=== PATIENT | male | born 1975 | race Two or more races ===

== ENCOUNTER 2024-09-23 05:46 | Inpatient (IN) | payer BC, OTHER ==
[~2024-09-23] VITALS: Ht 167.6 cm; Wt 73.2 kg
[2024-09-23] VITALS (8 sets, daily range): BP systolic 104–118; BP diastolic 69–77; PULSE 91–114; RESP 15–18; TEMP 97.5–98.2; O2SAT 94–97
[2024-09-23 06:15] LABS: BASOPHILS % (AUTO) 0.2 % (0-1); EOSINOPHILS % (AUTO) 0 % (0-6); HEMATOCRIT 41.2 % (42.0-52.0); HEMOGLOBIN 13.4 g/dl (14.0-17.9); LYMPHOCYTES # (AUTO) 0.7 X10'3 (1.1-4.8); LYMPHOCYTES % (AUTO) 4.7 % (21-51); MEAN CORPUSCULAR HEMOGLOBIN 25.1 PG (27.0-31.0); MEAN CORPUSCULAR HGB CONC 32.4 g/dL (33.0-36.5); MEAN CORPUSCULAR VOLUME 77.6 FL (78-98); MEAN PLATELET VOLUME 10.2 FL (7.4-10.4); MONOCYTES # (AUTO) 0.3 X10'3 (0-0.9); MONOCYTES % (AUTO) 1.7 % (2-12); NEUTROPHILS # (AUTO) 14.8 X10'3 (1.8-7.7); NEUTROPHILS % (AUTO) 93.4 % (42-75); PLATELET COUNT 255 X10'3 (140-440); RED BLOOD COUNT 5.32 X10'6 (4.70-6.10); RED CELL DISTRIBUTION WIDTH 14.3 % (11.5-14.5); WHITE BLOOD COUNT 15.8 X10'3 (4.5-11.0)
[2024-09-23 06:21] LABS: ALANINE AMINOTRANSFERASE 42 U/L (12-78); ALBUMIN 3.3 G/DL (3.4-5.0); ALBUMIN/GLOBULIN RATIO 0.7 (1.1-1.5); ALKALINE PHOSPHATASE 112 IU/L (46-116); ANION GAP 11 (8-16); ASPARTATE AMINO TRANSFERASE 58 U/L (10-37); BILIRUBIN,TOTAL 0.4 MG/DL (0.1-1.0); BLOOD UREA NITROGEN 18 MG/DL (7-18); BUN/CREATININE RATIO 13.1 (10.0-20.0); CALCIUM 8.9 MG/DL (8.5-10.1); CHLORIDE 102 MMOL/L (99-107); CREATININE 1.37 MG/DL (0.60-1.10); GLUCOSE 306 MG/DL (70-104); POTASSIUM 3.9 MMOL/L (3.5-5.1); SODIUM 136 MMOL/L (135-145); TOTAL CARBON DIOXIDE 22.6 MMOL/L (24-32); TOTAL PROTEIN 7.9 G/DL (6.4-8.2); eCRCL 58 ML/MIN; eGFR 55 ML/MIN
[2024-09-23 06:29] LABS: PRO BRAIN NATRIURETIC PEPTIDE 3043 PG/ML (0-125)
[2024-09-23] MEDS ORDERED: heparin 10,000 units/1 ML INJ IV ONE (06:35)
[2024-09-23] MEDS: CefTRIAXone 2gm/D5W 50ml BAG 50 ML IV ONE (06:41)
[2024-09-23] MEDS: insulin regular, human 10 units/0.1 ml syringe IV ONE (06:46)
[2024-09-23] MEDS: MESSAGE TO NURSING IV ONE ×2 (06:54→23:00)
[2024-09-23] MEDS: heparin 10,000 units/1 ML INJ IV ONE (07:05)
[2024-09-23 07:06] LABS: APTT 33 SECONDS (22-32); INR 1.1 INR; PROTHROMBIN TIME 11.3 SECONDS (9.0-12.0)
[2024-09-23] MEDS: heparin 25,000 UNIT/250ml bag 250 ML IV PRN (07:09)
[2024-09-23] MEDS ORDERED: INSU100V13 SQ (07:33)
[2024-09-23] MEDS ORDERED: LANTUS SQ (07:34)
[2024-09-23] MEDS ORDERED: ondansetron/PF 4mg/2ml inj IV PRN (10:05)
[2024-09-23] MEDS ORDERED: magnesium sulf-water 4G/100mL 100 ML IV PRN (10:05)
[2024-09-23] MEDS ORDERED: magnesium Cl slow-release 64mg tablet PO PRN (10:05)
[2024-09-23] MEDS ORDERED: acetaminophen 325mg tablet PO PRN (10:05)
[2024-09-23] MEDS ORDERED: potassium Cl 40MEQ/1/2NS 520ml 520 ML IV PRN (10:05)
[2024-09-23] MEDS ORDERED: mag hydrox/Alum hydrox/simeth 30ml oral suspension PO PRN (10:05)
[2024-09-23] MEDS ORDERED: potassium Cl 20 mEq SR tablet PO PRN ×2 (10:05)
[2024-09-23] MEDS ORDERED: magnesium hydroxide 30ml (MOM) UD suspension PO PRN (10:05)
[2024-09-23] MEDS: azithromycin/NS 500mg/250ml 250 ML IV ONE (10:07)
[2024-09-23] MEDS: normal saline 1000ml 1,000 ML IV SCH (10:18)
[2024-09-23] MEDS ORDERED: glucagon, human recombinant 1mg kit SUBCUT PRN (16:35)
[2024-09-23] MEDS ORDERED: dextrose 50%-water 50ml dispensing syringe IV PRN ×2 (16:35)
[2024-09-23] MEDS ORDERED: DEXTROSE 15 GM of carb/4 tabs (each vial/BOTTLE has 4 tablets) PO PRN ×2 (16:35)
[2024-09-23] MEDS: metoprolol succinate 25mg (24-HOUR) SR. Tablet PO SCH (16:47)
[2024-09-23] MEDS ORDERED: acetaminophen 325mg tablet PO SCH (16:55)
[2024-09-23] MEDS: INSULIN LISPRO 100 UNIT/ML INSULN.PEN MULTI-DOSE SQ SCH ×2 (17:01→17:30)
[2024-09-23 17:06] LABS: CHOL/HDL RATIO 6.1 (0.00-4.99); CHOLESTEROL 233 MG/DL (0-200); HDL CHOLESTEROL 38 MG/DL (35-60); LDL CHOLESTEROL 164 MG/DL (50-100); TRIGLYCERIDES 89 MG/DL (20-135)
[2024-09-23] MEDS: insulin glargine (Lantus) pen - multi-dose SQ ONE (17:20)
[2024-09-23 18:27] LABS: HEMOGLOBIN A1C 8.6 % (4.5-6.2)
[2024-09-23] MEDS: ipratropium/albuterol 3ml nebule NEB SCH (19:00)
[2024-09-23] MEDS ORDERED: temazepam 15mg capsule PO PRN (21:00)
[2024-09-23] MEDS: insulin glargine (Lantus) pen - multi-dose SQ SCH (21:50)
[2024-09-23] MEDS: docusate sod 100mg capsule PO SCH (21:55)
[2024-09-23] MEDS: atorvastatin 20mg tablet PO SCH (21:56)
[2024-09-24] VITALS (36 sets, daily range): BP systolic 94–162; BP diastolic 58–102; PULSE 85–115; RESP 12–48; TEMP 95.4–98.2; O2SAT 88–100
[2024-09-24 06:07] LABS: BASOPHILS # (AUTO) 0.1 X10'3 (0-0.2); BASOPHILS % (AUTO) 0.6 % (0-1); EOSINOPHILS # (AUTO) 0.1 X10'3 (0-0.9); EOSINOPHILS % (AUTO) 0.5 % (0-6); HEMATOCRIT 36.7 % (42.0-52.0); HEMOGLOBIN 11.8 g/dl (14.0-17.9); LYMPHOCYTES % (AUTO) 21.9 % (21-51); MEAN CORPUSCULAR HEMOGLOBIN 25.1 PG (27.0-31.0); MEAN CORPUSCULAR HGB CONC 32.2 g/dL (33.0-36.5); MEAN CORPUSCULAR VOLUME 77.9 FL (78-98); MEAN PLATELET VOLUME 11.6 FL (7.4-10.4); MONOCYTES # (AUTO) 0.9 X10'3 (0-0.9); MONOCYTES % (AUTO) 6.3 % (2-12); NEUTROPHILS # (AUTO) 9.7 X10'3 (1.8-7.7); NEUTROPHILS % (AUTO) 70.7 % (42-75); PLATELET COUNT 225 X10'3 (140-440); RED BLOOD COUNT 4.71 X10'6 (4.70-6.10); RED CELL DISTRIBUTION WIDTH 14.6 % (11.5-14.5); WHITE BLOOD COUNT 13.7 X10'3 (4.5-11.0)
[2024-09-24 06:31] LABS: ALANINE AMINOTRANSFERASE 25 U/L (12-78); ALBUMIN 2.7 G/DL (3.4-5.0); ALBUMIN/GLOBULIN RATIO 0.6 (1.1-1.5); ALKALINE PHOSPHATASE 91 IU/L (46-116); ANION GAP 7 (8-16); ASPARTATE AMINO TRANSFERASE 34 U/L (10-37); BILIRUBIN,TOTAL 0.7 MG/DL (0.1-1.0); BLOOD UREA NITROGEN 26 MG/DL (7-18); BUN/CREATININE RATIO 20.6 (10.0-20.0); CALCIUM 8.4 MG/DL (8.5-10.1); CHLORIDE 104 MMOL/L (99-107); CREATININE 1.26 MG/DL (0.60-1.10); GLUCOSE 397 MG/DL (70-104); POTASSIUM 4.7 MMOL/L (3.5-5.1); SODIUM 134 MMOL/L (135-145); TOTAL CARBON DIOXIDE 22.9 MMOL/L (24-32); TOTAL PROTEIN 6.9 G/DL (6.4-8.2); eCRCL 63 ML/MIN; eGFR 61 ML/MIN
[2024-09-24] MEDS: MESSAGE TO NURSING IV ONE ×2 (07:20→12:27)
[2024-09-24] MEDS: INSULIN LISPRO 100 UNIT/ML INSULN.PEN MULTI-DOSE SQ SCH ×2 (07:30→12:30)
[2024-09-24] MEDS: heparin 10,000 units/1 ML INJ IV PRN (07:42)
[2024-09-24] MEDS ORDERED: aspirin 81mg, enteric-coated 1 TAB TABLET.DR PO SCH (08:00)
[2024-09-24] MEDS: insulin glargine (Lantus) pen - multi-dose SQ ONE (08:11)
[2024-09-24] MEDS: CefTRIAXone 2gm/D5W 50ml BAG 50 ML IV SCH (09:10)
[2024-09-24] MEDS: pantoprazole 40mg Tablet.DR PO SCH (09:13)
[2024-09-24] MEDS: atorvastatin 20mg tablet PO SCH (09:13)
[2024-09-24] MEDS: aspirin 81mg tab.chew PO SCH (09:13)
[2024-09-24] MEDS ORDERED: verapamil 2.5 mg/ml inj IV ONE (12:14)
[2024-09-24] MEDS ORDERED: heparin 1,000unit/ml 10ml vial 10 ML ONE ×2 (12:14→13:57)
[2024-09-24] MEDS ORDERED: LIDOcaine 1% 30ml preserv. free vial ONE (12:14)
[2024-09-24] MEDS ORDERED: fentaNYL/PF 50MCG/1 ML 2ML syringe ONE (12:14)
[2024-09-24] MEDS ORDERED: midazolam 1 mg/ML 2ml injection ONE ×2 (12:14→13:11)
[2024-09-24] MEDS ORDERED: iohexol 350MG/ML 100ml bottle IV ONE (12:14)
[2024-09-24] MEDS ORDERED: nitroGLYCERIN 500mcg/5mL D5W 5 ML IV ONE (12:22)
[2024-09-24] MEDS ORDERED: ticagrelor 90mg tablet ONE (13:27)
[2024-09-24] MEDS: azithromycin/NS 500mg/250ml 250 ML IV SCH (15:16)
[2024-09-24] MEDS: furosemide 40mg/4ml inj IV ONE ×2 (16:20→16:55)
[2024-09-24] MEDS: morphine 4 MG/ML inj SYRINge IV ONE (16:25)
[2024-09-24 16:28] LABS: ABG BASE EXCESS -7.8 mmol/L (-2.0-3.0); ABG HCO3 15.6 mmol/L (21.0-28.0); ABG OXYGEN SATURATION 97.5 % (94.0-98.0); ABG PCO2 (T) 26.8 mmHg (35.0-48.0); ABG PH (T) 7.384 (7.350-7.450); ABG PO2 (T) 98.7 mmHg (83.0-108.0); ALLEN'S TEST POSITIVE; FCOHb 0.6 % (0.5-1.5); FHHb 2.5 % (0.0-5.0); FLOW 10 L/min; FMetHb 0.3 % (0.0-1.5); FO2Hb 96.6 % (94.0-98.0); MODE MASK - SIMPLE; TOTAL HEMOGLOBIN 13.5 G/dl (13.5-17.5)
[2024-09-24] MEDS: nitroGLYCERIN-Tridil 50MG/D5W 250 ML IV SCH (16:29)
[2024-09-24] MEDS ORDERED: morphine 2 MG/ML inj. syringe IV PRN (16:40)
[2024-09-24] MEDS: LidoCAINE 2% Topical Jelly 11mL syringe (UROJET) TOP ONE (16:41)
[2024-09-24] MEDS: furosemide 40mg/4ml inj IV SCH (20:00)
[2024-09-24] MEDS: ticagrelor 90mg tablet PO SCH (22:07)
[2024-09-25] VITALS (12 sets, daily range): BP systolic 108–122; BP diastolic 69–80; PULSE 81–94; RESP 18–26; TEMP 98.3; O2SAT 96–99
[2024-09-25 06:52] LABS: BASOPHILS # (AUTO) 0.1 X10'3 (0-0.2); BASOPHILS % (AUTO) 0.5 % (0-1); EOSINOPHILS # (AUTO) 0.1 X10'3 (0-0.9); EOSINOPHILS % (AUTO) 1.1 % (0-6); HEMATOCRIT 37.8 % (42.0-52.0); HEMOGLOBIN 12.3 g/dl (14.0-17.9); LYMPHOCYTES # (AUTO) 1.9 X10'3 (1.1-4.8); LYMPHOCYTES % (AUTO) 14.9 % (21-51); MEAN CORPUSCULAR HGB CONC 32.4 g/dL (33.0-36.5); MEAN PLATELET VOLUME 10.4 FL (7.4-10.4); MONOCYTES # (AUTO) 1.1 X10'3 (0-0.9); MONOCYTES % (AUTO) 8.7 % (2-12); NEUTROPHILS # (AUTO) 9.4 X10'3 (1.8-7.7); NEUTROPHILS % (AUTO) 74.8 % (42-75); PLATELET COUNT 228 X10'3 (140-440); RED BLOOD COUNT 4.91 X10'6 (4.70-6.10); RED CELL DISTRIBUTION WIDTH 14.3 % (11.5-14.5); WHITE BLOOD COUNT 12.6 X10'3 (4.5-11.0)
[2024-09-25 07:07] LABS: ALANINE AMINOTRANSFERASE 27 U/L (12-78); ALBUMIN/GLOBULIN RATIO 0.7 (1.1-1.5); ALKALINE PHOSPHATASE 96 IU/L (46-116); ANION GAP 12 (8-16); ASPARTATE AMINO TRANSFERASE 44 U/L (10-37); BLOOD UREA NITROGEN 21 MG/DL (7-18); BUN/CREATININE RATIO 18.8 (10.0-20.0); CALCIUM 8.2 MG/DL (8.5-10.1); CHLORIDE 101 MMOL/L (99-107); CREATININE 1.12 MG/DL (0.60-1.10); GLUCOSE 206 MG/DL (70-104); POTASSIUM 3.3 MMOL/L (3.5-5.1); SODIUM 136 MMOL/L (135-145); TOTAL CARBON DIOXIDE 23.4 MMOL/L (24-32); TOTAL PROTEIN 7.4 G/DL (6.4-8.2); eCRCL 71 ML/MIN; eGFR 69 ML/MIN
[2024-09-25] MEDS: aspirin 81mg, enteric-coated 1 TAB TABLET.DR PO SCH (08:30)
[2024-09-25] MEDS: lisinopril 2.5mg tablet PO SCH (12:46)
[2024-09-25] MEDS: spironolactone 25 MG tablet PO SCH (12:47)
[2024-09-25] MEDS ORDERED: LISI2.5T14 PO (13:58)
[2024-09-25] MEDS ORDERED: TICA90TA PO (13:58)
[2024-09-25] MEDS ORDERED: SPIR25TA PO (13:58)
[2024-09-25] MEDS ORDERED: FURO-150 PO (13:58)
[2024-09-25] MEDS ORDERED: METO-395 PO (13:58)
[2024-09-25] MEDS ORDERED: ATOR80TA13 PO (13:58)
[2024-09-25] MEDS ORDERED: ASPI-1071 PO (13:58)
== END 2024-09-25 16:18 | disposition home or self-care (01) | DRG 321 ==
LOC: ER 05:46 → ED HOLD 10:07 → PCU 3S 18:00
PROVIDERS: ADMIT Internal Medicine; ATTEND Internal Medicine
PROC: 027034Z Dilation of Coronary Artery, One Artery with Drug-eluting Intraluminal Device, Percutaneous Approach (ICD-10-PCS; principal; 2024-09-24)
PROC: B2111ZZ Fluoroscopy of Multiple Coronary Arteries using Low Osmolar Contrast (ICD-10-PCS; 2024-09-24)
PROC: 4A023N7 Measurement of Cardiac Sampling and Pressure, Left Heart, Percutaneous Approach (ICD-10-PCS; 2024-09-24)
PROC: B41J1ZZ Fluoroscopy of Other Lower Arteries using Low Osmolar Contrast (ICD-10-PCS; 2024-09-24)
PROC: 5A09357 Assistance with Respiratory Ventilation, Less than 24 Consecutive Hours, Continuous Positive Airway Pressure (ICD-10-PCS; 2024-09-24)
DX: I21.4 Non-ST elevation (NSTEMI) myocardial infarction (principal); I50.23 Acute on chronic systolic (congestive) heart failure; J96.00 Acute respiratory failure, unspecified whether with hypoxia or hypercapnia; N17.0 Acute kidney failure with tubular necrosis; F17.210 Nicotine dependence, cigarettes, uncomplicated; Z20.822 Contact with and (suspected) exposure to COVID-19; I11.0 Hypertensive heart disease with heart failure; E10.21 Type 1 diabetes mellitus with diabetic nephropathy; E78.00 Pure hypercholesterolemia, unspecified; I25.5 Ischemic cardiomyopathy; I25.10 Atherosclerotic heart disease of native coronary artery without angina pectoris; Z79.4 Long term (current) use of insulin; Z79.82 Long term (current) use of aspirin; Z79.899 Other long term (current) drug therapy; Z98.61 Coronary angioplasty status
CPT/HCPCS: 93306; 93308; 93458; C9600; 36415; 36600; 71045; 80053; 80061; 82803; 82948; 83036; 83605; 83880; 84145; 84484; 85018; 85025; 85347; 85610; 85730; 87811; 93005; 94640; 94660; 94760; 99152; 99153; A4314; A4615; A4620; A6258; C1725; C1751; C1760; C1874; C1894; G0378; J0456; J0696; J1644; J1815; J1940; J2250; J2270; J3010; J3490; J7030; Q9967